=== PATIENT | female | born 1930 | race Caucasian/White ===

== ENCOUNTER 2018-05-07 16:00 | Emergency (ER) | payer MEDICARE ==
[~2018-05-07] VITALS: Ht 162.6 cm; Wt 63.6 kg
[~2018-05-07 16:00] MED LIST: ATOR20TA66 PO; CINA30TA PO; DIO80T PO; FURO20TA4 PO; LEVO75TA PO; METF500T7 PO; POTA10CA44 PO; PROP10TA10 PO; VENL75CA55 PO
[2018-05-07 16:11] VITALS: BP 128/83
[2018-05-07] MEDS ORDERED: TETanus/Pertussis (Acell)/Diphther VAC/PF (Tdap-Adult) 0.5ml syringe IM ONE (16:30)
[2018-05-07] MEDS ORDERED: CEPH-571 PO (16:43)
== END 2018-05-07 17:19 | disposition home or self-care (01) ==
LOC: ER 16:00
DX: L03.114 Cellulitis of left upper limb (principal); E11.9 Type 2 diabetes mellitus without complications
CPT/HCPCS: 90471; 90715; 99283